=== PATIENT | male | born 1980 | race African-American/Black ===

== ENCOUNTER 2021-03-07 10:52 | Emergency (ER) | payer SELFPAY ==
[~2021-03-07] VITALS: Ht 172.7 cm; Wt 82.0 kg
[2021-03-07 11:00] VITALS: BP 159/88
[2021-03-07] MEDS ORDERED: TETANUS AND DIPHTHERIA TOX/PF 0.5ML SYR (ADULT) IM ONE (11:15)
[2021-03-07] MEDS ORDERED: CEFAZOLIN 1000MG PREMIX 50 ML IV ONE (11:15)
[2021-03-07] MEDS ORDERED: TETANUS, DIPHTHERIA, PERTUSSIS VAC/PF 0.5ML (>10YR OLD) IM ONE (11:30)
== END 2021-03-07 11:31 | disposition short-term general hospital (02) ==
LOC: ER 11:01
DX: S01.83XA Puncture wound without foreign body of other part of head, initial encounter (principal); B20 Human immunodeficiency virus [HIV] disease; X95.9XXA Assault by unspecified firearm discharge, initial encounter; Y93.9 Activity, unspecified; Y92.9 Unspecified place or not applicable
CPT/HCPCS: 70250; 90471; 90715; 99291; J0690; 90714